=== PATIENT | female | born 1945 | race African-American/Black ===

== ENCOUNTER 2016-05-28 09:59 | Emergency (ER) | payer OTHER ==
[~2016-05-28] VITALS: Ht 167.6 cm; Wt 60.0 kg
[2016-05-28] MEDS ORDERED: GLIP10TA10 PO (10:07)
[2016-05-28] MEDS ORDERED: ASPI-1035 PO (10:07)
[2016-05-28] MEDS ORDERED: ATEN50TA PO (10:07)
[2016-05-28] MEDS ORDERED: CLON0.1T PO (10:08)
[2016-05-28] MEDS ORDERED: LISI40TA4 PO (10:08)
[2016-05-28] MEDS ORDERED: SPIR25TA4 PO (10:08)
[2016-05-28 10:38] LABS: BASOPHILS % 0.4 % (0.0-2.0); EOSINOPHILS % 1.2 % (0.0-5.0); HEMATOCRIT. 48.6 % (36.0-48.0); HEMOGLOBIN. 15.9 g/dL (12.0-16.0); LYMPHOCYTES % 23.2 % (20.0-50.0); MEAN CORPUSCULAR HEMOGLOBIN 27.3 pg (28.0-32.0); MEAN CORPUSCULAR HGB CONC 32.8 g/dL (31.0-37.0); MEAN CORPUSCULAR VOLUME 83.2 fL (81.0-99.0); MEAN PLATELET VOLUME 9.4 fl (7.4-10.4); MONOCYTES % 8.7 % (2.0-8.0); NEUTROPHILS % 66.5 % (40.0-76.0); PLATELET 172 x1000/uL (130-400); RED BLOOD CELL COUNT 5.84 mill/uL (4.2-5.4); RED CELL DISTRIBUTION WIDTH 16.1 % (11.6-14.6); WHITE BLOOD COUNT 8.8 x1000/uL (4.5-11.0)
[2016-05-28 10:46] LABS: PARTIAL THROMBOPLASTIN TIME 28.1 sec (24.0-34.0); PROTHROMBIN TIME 10.2 sec
[2016-05-28 10:47] LABS: ALBUMIN 4.4 g/dL (3.4-5.0); ANION GAP 12; CALCIUM 10.1 mg/dL (8.5-10.1); CARBON DIOXIDE 28 mEq/L (21-32); CHLORIDE 103 mEq/L (98-107); INDEX HEMOLYSI 1 (1-3); INDEX ICTERIC 1 (1-4); INDEX LIPEMIC 1 (1-3); LIPASE 202 IU/L (73-393); UREA NITROGEN BLOOD 17 mg/dL (7-21)
[2016-05-28 10:57] LABS: ALANINE AMINOTRANSFERASE 26 IU/L (13-61); NT PRO B-TYPE NATRIURETIC PEP 128 pg/mL (5-125); T4 FREE 1.13 ng/dL (0.76-1.46); TROPONIN I < 0.02 ng/mL (0.00-0.04); eGFR > 60 mL/min (>60)
[2016-05-28] MEDS ORDERED: ASPIRIN 81MG TABLET PO ONE (12:00)
[2016-05-28 14:10] VITALS: BP 148/72
== END 2016-05-28 14:22 | disposition short-term general hospital (02) ==
LOC: ER 10:25
DX: R07.89 Other chest pain (principal); I10 Essential (primary) hypertension; E11.65 Type 2 diabetes mellitus with hyperglycemia; R00.2 Palpitations; I11.9 Hypertensive heart disease without heart failure; Z88.2 Allergy status to sulfonamides; Z88.5 Allergy status to narcotic agent; Z79.82 Long term (current) use of aspirin; Z79.899 Other long term (current) drug therapy
CPT/HCPCS: 36415; 71010; 80053; 82962; 83690; 83880; 84439; 84443; 84484; 85025; 85610; 85730; 93005; 99285; Z7610